=== PATIENT | female | born 1955 | race Caucasian/White ===

== ENCOUNTER 2021-03-14 17:09 | Outpatient (CLI) | payer MEDICARE, OTHER | END 2021-03-14 17:10 | disposition critical access hospital (66) | LOC: EMS 17:09 | DX: T78.40XA Allergy, unspecified, initial encounter (principal) | CPT/HCPCS: A0425; A0429 ==

== ENCOUNTER 2021-03-14 17:32 | Emergency (ER) | payer MEDICARE, OTHER ==
[2021-03-14] MEDS ORDERED: TRANEXAMIC ACID 1,000 MG in SODIUM CHLORIDE 0.9% 100ML 100 ML IV STA (18:02)
--- NOTE | 2021-03-14 18:20 | ED Physician Documentation ---
History of Present Illness - Stated complaint Stated Complaint: ALLERGIC REACTION - Chief complaint Chief Complaint: Allergic Rx - History obtained from History obtained from: Patient - History of Present Illness Pain level max: 0 Pain level now: 0 - Additonal information Additional information: Patient is a 65-year-old female who presents to the emergency department with lip swelling today. She states she had no difficulty breathing or rash or itching. 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 She states that this is happened 2-3 times over the past year. She is taking quinapril at home for hypertension. She went to the walk-in clinic today where she received epinephrine 0.3 mg IM, 10 mg of Decadron IM and 50 mg of Benadryl IM. She states she currently feels about the same. Review of Systems Ten Systems: 10 systems reviewed and negative Constitutional: denies: Fever, Chills Nose: denies: Rhinorrhea / runny nose, Congestion Respiratory: denies: Cough GI: denies: Nausea, Vomiting, Diarrhea PD PAST MEDICAL HISTORY - Past Medical History Past Medical History: Yes Cardiovascular: Hypertension - Allergies Allergies/Adverse Reactions: Allergies Allergy/AdvReac Type Severity Reaction Status Date / Time nut - unspecified Allergy Unknown Verified 03/14/21 17:56 shellfish derived Allergy Anaphylaxis Verified 03/14/21 17:56 PD ED PE NORMAL - Vitals Vital signs reviewed: Yes - General General: Alert and oriented X 3, No acute distress, Well developed/nourished - HEENT HEENT: PERRL, Moist mucous membranes, Other (Upper and lower lip edema. Normal tongue. Normal phonation. Normal posterior oropharynx. No trismus) - Neck Neck: Supple, no meningeal sign - Cardiac Cardiac: RRR - Respiratory Respiratory: No respiratory distress, Clear bilaterally, Other (No wheezing or stridor) - Abdomen Abdomen: Soft, Non tender, Non distended - Derm Derm: Warm and dry - Extremities Extremities: No edema - Neuro Neuro: Alert and oriented X 3 - Psych Psych: Normal mood, Normal affect Results - Vitals Vitals: Oxygen O2 Source Room air PD MEDICAL DECISION MAKING - ED course Complexity details: re-evaluated patient, considered differential, d/w patient ED course: 65-year-old female with angioedema. She is on quinapril and this could be ROSSANA inhibitor associated. She was given a gram of TXA IV. The swelling significantly decreased. She is not having any further symptoms at this time. Recommend that she stop the quinapril. Recommend that she follow-up with her doctor for further care. Patient has no evidence of anaphylaxis at this time. No airway involvement. Patient counseled regarding signs and symptoms for which I believe and urgent re-evaluation would be necessary. Patient with good und erstanding of and agreement to plan and is comfortable going home at this time This document was made in part using voice recognition software. While efforts are made to proofread this document, sound alike and grammatical errors may occur. Departure - Departure Disposition: Home, Self Care Clinical Impression: Angioedema Qualifiers: Encounter type: initial encounter Qualified Code(s): T78.3XXA - Angioneurotic edema, initial encounter Condition: Good Instructions: ED Angioedema Follow-Up: ERAN NESS [Primary Care Provider] - Within 1 week Comments: The cause of the angioedema is unclear, but could be related to the ROSSANA inhibitor that you are taking. I would stop the quinapril. If your doctor would like to change you to another blood pressure medication they can, but ROSSANA inhibitor's can cause angioedema. Please follow-up with your doctor for further care. Return if you worsen. Discharge Date/Time: 03/14/21 19:18
[2021-03-14 19:16] VITALS: BP 174/114
== END 2021-03-14 19:18 | disposition home or self-care (01) ==
LOC: ED 17:32
DX: T78.3XXA Angioneurotic edema, initial encounter (principal); X58.XXXA Exposure to other specified factors, initial encounter; I10 Essential (primary) hypertension
CPT/HCPCS: 96374; 99284